=== PATIENT | male | born 1995 | race Caucasian/White ===

== ENCOUNTER 2023-06-08 18:47 | Emergency (ER) | payer OTHER, SELFPAY ==
[2023-06-08 18:54] VITALS: BP 125/94
[2023-06-08 19:52] VITALS: BP 120/76
[2023-06-08 20:00] VITALS: BP 106/82
[2023-06-08 20:15] VITALS: BP 109/72
[2023-06-08 20:30] VITALS: BP 103/74
--- NOTE | 2023-06-08 20:53 | ED.GENMED ---
History of Present Illness
General
Chief Complaint: Chest Pain
Time Seen by Provider: 06/08/23 20:10
Travel History
Have you had any contact with someone who has COVID-19?: No
Do you have any symptoms of coronavirus? Fever > 100 degrees, chills, cough, shortness of breath, sore throat, loss of taste or smell, muscle aches, or headache?: No
History of Present Illness
History of Present Illness:
27-year-old otherwise healthy male presents to the emergency department for evaluation of heart palpitations and dizziness that developed earlier today lasting approximately 3 to 4 hours. States he was seated on a chair with the symptoms developed,
had pain radiating to the neck as well as the back during this time. Symptoms terminated upon arrival to the emergency department. He has no current chest pain. Denies any known family history of cardiac dysrhythmias but does note a strong family
history of precocious coronary artery disease. Denies any illicit substance use
Review of Systems
Review of Systems
Allergies reviewed?: Yes
All Other Systems: ROS reviewed and negative except as documented in HPI and ROS
Phy Exam
Physical Exam
Physical Exam:
GEN: Well appearing, NAD, WDWN
HEENT: Oral mucosa moist, no scleral icterus
Cardiac: Regular rate and rhythm, no murmurs
Lung: No respiratory distress, no tachypnea
MSK: No gross deformity or injuries
Skin: Good color, no pallor or jaundice, no rashes
Neuro: AO x3, moves all extremities freely
Psych: Calm, cooperative
Scores
Heart Score for Chest Pain Patients
STEMI patient?: No
History: Slightly or Non-Suspicious
ECG: Normal
Age: </= 45 years
Risk Factors: No Risk Factors
Troponin: </= Normal Limit
Heart Score for Chest Pain Patients: 0
Heart Score Risk: 2.5% MACE over next 6 weeks
Course
Orders/Labs/Results
Orders:
Orders
06/08/23 18:51
EKG [Electrocardiogram (*1)] Urgent
Reason for Study: Chest Pain
EKG- Treatment ONCE
06/08/23 21:10
CBC/With Diff [Complete Blood Count/With Diff] Urgent
CMP [Comprehensive Metabolic Panel] Urgent
TSH Urgent
Comment: ADD ON
Troponin I Urgent
06/08/23 21:11
Add On- LAB Urgent
Tests Added?: tsh
Abnormal Lab Results
06/08/23
21:10
MPV 11.7 H fL
(7.4-10.4)
Absolute Neuts (auto) 8.2 H 10^3/uL
(1.4-6.5)
Neutrophils % 76.1 H %
(42.2-75.2)
Lymphocytes % 16.7 L %
(20.5-51.1)
Creatinine 0.6 L mg/dL
(0.7-1.3)
Glucose 101 H mg/dl
(70-99)
Albumin 5.1 H g/dl
(3.5-5.0)
06/08/23 21:10
06/08/23 21:10
Vital Signs
Initial and Last Documented VS:
Initial Vital Signs
Temp Pulse Resp BP Pulse Ox
98.1 F 98 18 125/94 100
06/08/23 18:54 06/08/23 18:54 06/08/23 18:54 06/08/23 18:54 06/08/23 18:54
Last Documented Vital Signs
Temp Pulse Resp BP Pulse Ox
98.1 F 92 15 127/62 96
06/08/23 18:54 06/08/23 22:15 06/08/23 22:00 06/08/23 22:15 06/08/23 22:00
MDM/Problems Addressed
MDM/Problems Addressed:
EKG currently interpreted by me shows normal sinus rhythm at a rate of [address] changes concerning for ischemia, QTc is 433
27-year-old male presents for evaluation of heart palpitations. He remained stable on telemetry with no cardiac dysrhythmias noted. His labs are unremarkable. Recommend outpatient primary care and/or cardiology follow-up to discuss potential
benefit of a Holter monitor.
*Critical Care Note
Total Time (30-74mins, 75-104mins- exclusive of procedures): Not Applicable
ED Attending Note
-
Portions of this chart may have been created with voice recognition software.� Occasional wrong word or��sound alike� substitutions may have occurred due to the inherent limitations of voice recognition software.
Discharge Plan
Departure
Patient Disposition: Home (Routine Discharge)
Date of Disposition: 06/08/23
Time of Disposition: 22:08
Patient with high blood pressure during this ER visit?: No
Discharge Problem:
Heart palpitations
Instructions: Palpitations ED
Referrals:
Jersey Maria MD [Active] -
Slim Carter CRNP [Family Provider] -
Interventions
Interventions:
*Risk Screen - Suicide Last Done: 06/08/23 18:54
*General Assessment Last Done: 06/08/23 18:54
*Neglect/Abuse Screening Last Done: 06/08/23 18:54
ED- Fall Risk Assessment Last Done: 06/08/23 21:26
*ED COVID-19 Vaccine History Last Done: 06/08/23 18:54
*Nursing Disposition Last Done: 06/08/23 22:35
ED- Cardiac Assessment Last Done: 06/08/23 21:26
Discharge Date and Time
Discharge Date/Time: 06/08/23 22:36
Print Language: [id number]
[2023-06-08 21:17] LABS: % Basophils 0.4 % (0-2); % Eosinophils 0.6 % (0-6); % Immature Granulocytes 0.4 % (0-0.5); % Lymphocytes 16.7 % (20.5-51.1); % Monocytes 5.8 % (1.7-9.3); % Neutrophils 76.1 % (42.2-75.2); Absolute Eosinophils 0.1 10^3/uL (0-0.7); Absolute Lymphocytes 1.8 10^3/uL (1.2-3.4); Absolute Monocytes 0.6 10^3/uL (0.1-0.6); Absolute Neutrophils 8.2 10^3/uL (1.4-6.5); Hematocrit 42.4 % (39.0-52.0); Hemoglobin 15.4 g/dL (13.0-18.0); Mean Corp Hgb Conc. 36.3 g/dL (33.0-37.0); Mean Corpuscular Hgb 30.9 pg (27.0-31.0); Mean Corpuscular Volume 85.1 fL (80.0-94.0); Mean Platelet Volume 11.7 fL (7.4-10.4); Nucleated Red Blood Cells % 0 % (-); Platelet Count 211 10^3/uL (130-400); Red Blood Cell Count 4.98 10^6/uL (4.70-6.10); Red Cell Dist. Width 11.6 % (11.5-14.5); White Blood Cell Count 10.8 10^3/uL (4.8-10.8)
[2023-06-08 21:32] LABS: ALT (SGPT) 19 U/L (0-50); AST (SGOT) 29 U/L (17-59); Albumin 5.1 g/dl (3.5-5.0); Alkaline Phosphatase 63 U/L (38-126); Blood Urea Nitrogen 13 mg/dl (9-20); Calcium 9.6 mg/dl (8.4-10.2); Carbon Dioxide 26 mmol/L (22-30); Chloride 103 mmol/L (98-107); Glucose 101 mg/dl (70-99); Potassium 4.5 mmol/L (3.5-5.1); Sodium 139 mmol/L (135-145); Total Bilirubin 0.6 mg/dl (0.2-1.3); Total Protein 7.7 g/dl (6.3-8.2); eGFR > 60.00
[2023-06-08 21:43] LABS: Troponin I < 0.012 ng/ml
[2023-06-08 22:15] VITALS: BP 127/62
[2023-06-08 22:39] LABS: TSH 3.17 uIU/ml (0.47-4.68)
== END 2023-06-08 22:36 | disposition home or self-care (01) ==
LOC: EMR 18:47
PROVIDERS: EMERGENCY PHYSICIAN Student in an Organized Health Care Education/Training Program; FAMILY PHYSICIAN Registered Nurse
DX: R00.2 Palpitations (principal); R42 Dizziness and giddiness; M54.2 Cervicalgia; R07.9 Chest pain, unspecified; M54.9 Dorsalgia, unspecified; Z88.0 Allergy status to penicillin
CPT/HCPCS: 99283; 80053; 84443; 84484; 85025; 93005

== ENCOUNTER → 2023-07-04 09:14 | Outpatient (REF) | payer OTHER, SELFPAY | LOC: RCS 09:14 | PROVIDERS: ATTENDING PHYSICIAN Registered Nurse | DX: R00.2 Palpitations (principal) | CPT/HCPCS: 93225; 93226 ==

== ENCOUNTER → 2023-12-29 08:43 | Outpatient (REF) | payer OTHER, SELFPAY | LOC: RCS 08:43 | PROVIDERS: ATTENDING PHYSICIAN Internal Medicine; FAMILY PHYSICIAN Registered Nurse | DX: R00.0 Tachycardia, unspecified (principal) | CPT/HCPCS: 93017 ==

== ENCOUNTER → 2023-12-31 14:24 | Outpatient (REF) | payer OTHER, SELFPAY | LOC: RCS 14:24 | PROVIDERS: ATTENDING PHYSICIAN Internal Medicine; FAMILY PHYSICIAN Registered Nurse | DX: R00.2 Palpitations (principal) | CPT/HCPCS: 93306 ==